=== PATIENT | male | born 1970 | race Caucasian/White ===

== ENCOUNTER 2021-12-10 21:13 | Emergency (ER) | payer BC ==
[~2021-12-10] VITALS: Ht 193 cm; Wt 154.5 kg
[2021-12-10 22:03] VITALS: BP 97/61; PULSE 119; TEMP 97.6
[2021-12-10] MEDS ORDERED: CEPHALEXIN500 M1 PO (22:18)
[2021-12-10] MEDS ORDERED: BACTRIM DS 8001 TAB PO (22:18)
== END 2021-12-10 22:10 | disposition home or self-care (01) ==
LOC: COL.ER 21:13
DX: L03.116 Cellulitis of left lower limb (principal); R60.0 Localized edema; I10 Essential (primary) hypertension; E11.9 Type 2 diabetes mellitus without complications
CPT/HCPCS: J1650

== ENCOUNTER → 2021-12-11 | Outpatient (CLI) | payer BC ==
[~2021-12-11] MED LIST: ASPIRIN 81M81 MG/TA2 PO; BACTRIM DS 8001 TAB PO; CEPHALEXIN500 M1 PO; DINO-LIFE1 CTB PO; GLYNASE PRES-T1.5 MG PO; LOPID 600M600 MG/TAB PO; PRINZIDE 12.5 M1 TAB PO; ZOCOR 10MG10 MG PO
== END ==
LOC: COL.VAS 08:37
DX: M79.89 Other specified soft tissue disorders (principal)

== ENCOUNTER 2021-12-15 21:51 | Inpatient (IN) | payer BC ==
[~2021-12-15] VITALS: Ht 193 cm; Wt 156.1 kg
[~2021-12-15 21:51] MED LIST changes: -ASPIRIN 81M81 MG/TA2 PO; -DINO-LIFE1 CTB PO; -GLYNASE PRES-T1.5 MG PO; -LOPID 600M600 MG/TAB PO; -PRINZIDE 12.5 M1 TAB PO; -ZOCOR 10MG10 MG PO
[2021-12-15 22:18] LABS: COLLECTION METHOD CLEAN CATCH
[2021-12-15 22:22] LABS: HEMOGLOBIN 10.3 g/dl (13.5-18.0); MEAN CELL VOLUME 76 fl (80.0-100.0); MEAN CORPUSCULAR HEMOGLOBIN 24 pg (27-31); MEAN CORPUSCULAR HGB CONC 32 g/dl (33.0-37.0); MEAN PLATELET VOLUME 10.6 fl (7.4-10.4); PLATELET COUNT 200 K/mm3 (130-400); RED BLOOD COUNT 4.32 M/mm3 (4.20-5.60); REDCELL DISTRIBUTION WIDTH-CV 18.9 % (11.5-14.5)
[2021-12-15 22:25] LABS: HEMATOCRIT 32.6 % (42.0-52.0)
[2021-12-15 22:32] LABS: MUCOUS Present (NOT PRESENT); PH 5 (5-8); SQUAMOUS EPITHELIAL None Seen /hpf (0-10); URINE APPEARANCE Clear (CLEAR/HAZY); URINE BACTERIA None Seen /hpf (NONE SEEN); URINE BILIRUBIN Negative (NEGATIVE); URINE BLOOD Negative (NEGATIVE); URINE COLOR Yellow (YELLOW); URINE GLUCOSE Negative (NEGATIVE); URINE KETONE Negative (NEGATIVE); URINE LEUKOCYTE ESTERASE Negative (NEGATIVE); URINE NITRATE Negative (NEGATIVE); URINE PROTEIN(semi-quant) Negative (NEGATIVE); URINE RBC 0-2 /hpf (0-2)
[2021-12-15 22:39] LABS: ALANINE AMINOTRANSFERASE 81 U/L (0-55); ALBUMIN 1.6 gm/dL (3.5-5.0); ALKALINE PHOSPHATASE 574 U/L (40-150); ANION GAP 11 mmol/L (7-16); AST,SGOT 105 U/L (5-34); BILIRUBIN,TOTAL 1.2 mg/dL (0.2-1.2); BLOOD UREA NITROGEN 62 mg/dL (8-26); C-REACTIVE PROTEIN 7.94 mg/dL (0.00-0.50); CALCIUM 8.4 mg/dL (8.4-10.2); CARBON DIOXIDE 21 mmol/L (22-29); CHLORIDE 99 mmol/L (98-107); CREATININE, serum 2.86 mg/dL (0.72-1.25); GLUCOSE 111 mg/dL (70-99); SODIUM 131 mmol/L (136-145); TOTAL PROTEIN 6.5 gm/dL (6.2-8.1)
[2021-12-15] MEDS ORDERED: PRINZIDE 12.5 M1 TAB PO (22:44)
[2021-12-15] MEDS ORDERED: GLYNASE PRES-T1.5 MG PO (22:45)
[2021-12-15] MEDS ORDERED: LOPID 600M600 MG/TAB PO (22:46)
[2021-12-15] MEDS ORDERED: ZOCOR 10MG10 MG PO (22:46)
[2021-12-15 22:47] LABS: TROPONIN-I < 0.010 ng/mL (0.00-0.033)
[2021-12-15] MEDS ORDERED: ASPIRIN 81M81 MG/TA2 PO (22:49)
[2021-12-15] MEDS ORDERED: DINO-LIFE1 CTB PO (22:49)
[2021-12-15 23:17] LABS: BAND 7 % (0-10); LYMPHOCYTE 3 % (20.0-51.0); NEUTROPHILS 83 % (42.0-75.2)
[2021-12-15 23:18] LABS: ANISOCYTOSIS 2+; HYPOCHROMIA 2+; MICROCYTOSIS 1+; PLATELET ESTIMATE NORMAL (NORMAL); TARGET CELLS 1+
[2021-12-16 01:06] VITALS: BP 107/55; PULSE 121; TEMP 98.1
--- NOTE | 2021-12-16 01:37 | NUR ---
ADMIT TO UNIT FROM ER PER CART. ASSESSMENT AND HX OBTAINED. MED REC COMPLETE. PT STATES SWELLING IN LOWER LEGS STARTED LAST THUR AND HAD PAIN BEHIND KNEE. WENT TO SEE PCP, US - FOR DVT, DIAGNOSIS W CELLULITIS AND PUT ON ANTIBOTICS. OF WHICH NEVER GOT BETTER BUT ONLY WORSE. PT HAS +4 PITTING EDEMA UP TO HIPS, RED SWOLLEN AND TIGHT SHINY SKIN. LEFT LOWER TOP OF FOOT HAS BLACK BLISTER DRAINING SOME W FOUL SMELL. DOPPLER FOR PULSES. RATING PAIN 8/10. MORPHINE GIVEN IV. IV ANTIBOTICS INFUSING. POC DISCUSSED. ORIENTATED TO ROOM. CALL LIGHT WI REACH.
[2021-12-16 05:21] VITALS: BP 96/54; PULSE 113; TEMP 97.5
--- NOTE | 2021-12-16 06:11 | NUR ---
51 yo male admitted for further care and management of a possible left lower extremity skin/soft tissue infection that has failed outpatient management. ht 76 inches wt 156.1 kg (adj wt 114.5 kg) SCr 2.86 with estimated CrCl ~40 ml/min half life 30 hours Plan: Patient may not follow population based kinetics secondary to body habitus (BMI ~41.9 kg/m2). Initially given a loading dose of vancomycin 1750 mg in the ED, will give a supplemental loading dose of vancomycin 1250 mgx1 for a total loading dose of 3000 mg (19.2 mg/kg); followed by a maintenance regimen of vancomycin 1250 mg q24h to target a goal trough of 10-15 mcg/ml. Will follow patient's renal function, micro data, and vancomycin levels as inidicated to assess for any necessary changes to regimen. Thank you for this dosing consult.
[2021-12-16 06:19] LABS: MEAN CELL VOLUME 77 fl (80.0-100.0); MEAN CORPUSCULAR HGB CONC 31 g/dl (33.0-37.0); MEAN PLATELET VOLUME 10.2 fl (7.4-10.4); PLATELET COUNT 168 K/mm3 (130-400); RED BLOOD COUNT 4.11 M/mm3 (4.20-5.60); REDCELL DISTRIBUTION WIDTH-CV 18.9 % (11.5-14.5)
[2021-12-16 06:25] LABS: CREATININE, serum 2.59 mg/dL (0.72-1.25); POTASSIUM 5.2 mmol/L (3.5-4.5)
[2021-12-16 06:28] LABS: HEMATOCRIT 31.8 % (42.0-52.0); HEMOGLOBIN 9.7 g/dl (13.5-18.0); MEAN CORPUSCULAR HEMOGLOBIN 24 pg (27-31)
[2021-12-16 07:32] LABS: BAND 6 % (0-10); EOSINOPHIL 1 % (0-4); LYMPHOCYTE 4 % (20.0-51.0); METAMYELOCYTE 1 % (0-0); NEUTROPHILS 75 % (42.0-75.2)
[2021-12-16 07:35] LABS: HYPOCHROMIA 3+
[2021-12-16 08:00] VITALS: BP 99/48; PULSE 119; TEMP 97.8
[2021-12-16 08:20] LABS: PATHOLOGY DIFF REVIEW OK
--- NOTE | 2021-12-16 08:59 | NUR ---
Pt assessment complete. Pt is laying in bed upon entry, he is A/O x4. His breathing is even and unlabored on RA. Pt denies any SOB. No N/V. Pain controlled at this time, but increasing greatly with any touch. LLE weeping and ulcerated, elevated on pillows. Angelique CALLE. No needs at this time. Call light within reach.
--- NOTE | 2021-12-16 10:18 | NUR ---
SW met with the patient to discuss discharge plan. The patient lives in [place] with his , Blanche (ph#[phone]). He reports that he is normally independent with ADLs, but has been in extreme pain and not able to do much since he hurt his leg. The patient has left leg cellulitis. He states that he has been using his lovukp-ff-yhm's walker, but it is too short for him. The patient's PCP is Dr. Norm Flood and he receives his medications from [facility] in [place]. The patient does not have a DPOA-HC, but he was interested in obtaining a form. MARTHA provided. The patient reports that he would just like to stay here as long as possible, until he is better, so his will not have much to do. MARTHA informed him that PT/OT will be working with him and they may recommend home health or post-acute rehab. The patient verbalized understanding. He states that he would like to return home, but would like to see how the next day or two goes. SW to continue to follow. *Discharge plan: Undetermined at this time*
--- NOTE | 2021-12-16 11:37 | NUR ---
First visit from the drying tumbler operator. No needs right now.
[2021-12-16 12:43] VITALS: BP 113/65; PULSE 116; TEMP 98.3
[2021-12-16 16:00] VITALS: BP 101/50; PULSE 117; TEMP 98.2
--- NOTE | 2021-12-16 18:37 | NUR ---
Pt rested in bed through the day, pain controlled with PRN pain medications. Worsened with any ambulation/touch. Continues to weep from wound. IVF infusing. Angelique CALLE.
[2021-12-16 20:45] VITALS: BP 109/54; PULSE 114; TEMP 98.3
[2021-12-17 00:42] VITALS: BP 117/57; PULSE 112; TEMP 98.2
--- NOTE | 2021-12-17 01:16 | NUR ---
PT IS AWAKE ET STATES THAT AFTER THE ALARM ON THE IV PUMP STARTED GOING OFF, IT WOKE HIM UP ET NOW HIS LEFT RIBS ARE HURTING. PT POINTS TO HIS LEFT FLANK, IS GRIMACING, RATES PAIN 4/10 BUT STATES THAT IT IS SEVERE COMBINED WITH FOOT PAIN, IS EXACERBATED BY DEEP BREATHING. PT REQUESTS PAIN MEDICATION, STATES THAT HE MUST HAVE STRAINED A MUSCLE MOVING AROUND IN BED. HR IS 114, OXYGEN SATS ARE 95% ON RA. PT HAD EARLIER WANTED HIS BLOOD SUGAR CHECKED @ 0000 BECAUSE HE THOUGHT THAT IT MAY BE GETTING LOW. BS WAS 71, PT WAS OFFERED ET ATE SNACK. PT DENIES OTHER NEEDS @ THIS TIME. VANCOCIN INFUSING THROUGH PERIPHERAL IV. BROWN CATHETER DRAINING DEPENDENTLY, URINE IS KIMI IN COLOR. CALL LIGHT WITHIN REACH.
--- NOTE | 2021-12-17 04:04 | NUR ---
PT SLEEPING, OCCASIONALLY SNORES. IVF INFUSING. BROWN CATHETER DRAINING. LEFT FOOT IS ELEVATED WITH PILLOWS ET IS WEEPING SEROUS DRAINAGE. CALL LIGHT WITHIN REACH.
--- NOTE | 2021-12-17 05:53 | NUR ---
PT IS IN BED WITH HOB ELEVATED, EATING IRIS CRACKERS WITH PEANUT BUTTER ET APPLE JUICE. [facility] REPORTED THAT PT'S BLOOD SUGAR WAS LOW @ 69 THEN SNACK WAS GIVEN. PT DENIES OTHER NEEDS @ THIS TIME. RESPIRATIONS UNLABORED. CALL LIGHT WITHIN REACH.
[2021-12-17 06:02] VITALS: BP 105/59; PULSE 112; TEMP 97.8
[2021-12-17 06:04] LABS: CREATININE, serum 2.18 mg/dL (0.72-1.25); MAGNESIUM 1.8 mg/dL (1.6-2.6)
--- NOTE | 2021-12-17 06:09 | NUR ---
PT RESTING QUIETLY IN BED, STATES THAT HE IS HAVING A BAD MORNING, HE FEELS FLAT. PT IS UNABLE TO ELABORATE FURTHER. PT SPEAKS QUIETLY, OFTEN MAKES STATEMENTS THAT DO NOT MAKE SENSE. REQUESTS A "FROZEN COKE". PT IS AGREEABLE TO A PEPSI INSTEAD. TPN IS PUT ON STANDBY FOR 10 MINUTES THEN BLOOD IS DRAWN FROM PT'S PICC LINE FOR LABS. TPN IS RESUMED. PT REFUSES TO USE BR @ THIS TIME, STATES THAT HE WILL GO LATER. PT HAS BEEN SEEN TURNING ET REPOSITIONING SELF IN BED FREQUENTLY DURING NIGHT. PT DENIES OTHER NEEDS. RESPIRATIONS UNLABORED. CALL LIGHT WITHIN REACH.
[2021-12-17 07:49] VITALS: BP 117/66; PULSE 119; TEMP 98.2
--- NOTE | 2021-12-17 08:33 | NUR ---
Pt assessment complete. Pt laying in bed upon entry, he is A/O x4. His breathing is even and unlabored on RA. Pt denies SOB. Pain to LLE worse with ambulation. Draining and weeping to the ulceration of L foot, elevated on a pillow. Angelique CALLE. No needs at this time. Call light within reach.
[2021-12-17 11:42] VITALS: BP 135/66; PULSE 118; TEMP 97.6
[2021-12-17 11:59] LABS: CREATININE, serum 2.09 mg/dL (0.72-1.25); FRACTIONAL EXCRETION OF NA+ 0.37 %
[2021-12-17 15:35] VITALS: BP 131/59; PULSE 115; TEMP 98.2
--- NOTE | 2021-12-17 18:01 | NUR ---
Pt up to the cammode a few times today with assistance of one and use of a walker. Pain improved but does spike with ambulation and weight to that L foot. Dressing placed to foot-vaseline gauze, ABD, and gauze wrap. IV moved to RFA d/t increased swelling of LUE. Merino DD. No needs at this itme. Call light within reach.
[2021-12-17 20:22] VITALS: BP 123/57; PULSE 116; TEMP 97.9
--- NOTE | 2021-12-17 21:00 | NUR ---
PT RESTING IN BED. C/O INSOMNIA. SEE NEW ORDER FOR MELATONIN. SEE MAR FOR PAIN MEDS GIVEN FOR LT FOOT PAIN. LT FOOT ELEVATED ON PILLOW. SHIFT ASSESSMENT COMPLETED.
[2021-12-18] VITALS (7 sets, daily range): BP systolic 115–142; BP diastolic 60–71; PULSE 100–118; TEMP 97.7–98.5
--- NOTE | 2021-12-18 01:07 | NUR ---
DRSG CHANGED TO LT FOOT WITH VASELINE GAUZE, 4X4'S ABD'S GAUZE WRAP AND COBAN. SEEPING YELLOW SEROUS FLUID. PT FAHEEM WELL. GAVE PROTONIX FOR HEARTBURN. SEE JAN.
[2021-12-18 06:03] LABS: HEMOGLOBIN 10.2 g/dl (13.5-18.0); MEAN CELL VOLUME 75 fl (80.0-100.0); MEAN CORPUSCULAR HEMOGLOBIN 24 pg (27-31); MEAN CORPUSCULAR HGB CONC 32 g/dl (33.0-37.0); MEAN PLATELET VOLUME 9.8 fl (7.4-10.4); RED BLOOD COUNT 4.31 M/mm3 (4.20-5.60); REDCELL DISTRIBUTION WIDTH-CV 18.9 % (11.5-14.5)
--- NOTE | 2021-12-18 06:17 | NUR ---
SAMPSON Turner. PROVIDED SPRITE D/T SOME HEARTBURN.
[2021-12-18 06:25] LABS: CALCIUM 8.2 mg/dL (8.4-10.2); CREATININE, serum 1.77 mg/dL (0.72-1.25); POTASSIUM 4.8 mmol/L (3.5-4.5)
[2021-12-18 06:41] LABS: HEMATOCRIT 32.3 % (42.0-52.0)
[2021-12-18 06:46] LABS: PLATELET COUNT 279 K/mm3 (130-400)
[2021-12-18 07:44] LABS: BAND 14 % (0-10); BASOPHIL 1 % (0-2); EOSINOPHIL 2 % (0-4); LYMPHOCYTE 8 % (20.0-51.0); NEUTROPHILS 72 % (42.0-75.2)
[2021-12-18 07:45] LABS: PLATELET ESTIMATE NORMAL (NORMAL)
[2021-12-18 07:46] LABS: ANISOCYTOSIS 2+; HYPOCHROMIA 2+; MICROCYTOSIS 1+
--- NOTE | 2021-12-18 10:28 | NUR ---
Report received from nightshift nurse. Patient is awake and watching television in his bed. Full body assessment completed and vital signs are WNL. Morning medications were administered without difficulty. Informed the patient that he will be getting an MRI today. Telemetry was initiated. Patient denies any pain or complaints at this time. Call light within reach.
--- NOTE | 2021-12-18 13:15 | NUR ---
PATIENT OFF FLOOR FOR VQ SCAN
--- NOTE | 2021-12-18 15:32 | NUR ---
PATIENT GOING DOWN FOR CT SCAN OF LEFT FOOT/ANKLE
--- NOTE | 2021-12-18 15:35 | NUR ---
Patient left the floor via wheelchair to receive his MRI. Patient had difficulty ambulating to the wheelchair and expressed that his foot was hurting.
--- NOTE | 2021-12-18 16:07 | NUR ---
AT BEDSIDE, PATIENT GONE TO MRI. PROVIDER TALKED WITH SON.
--- NOTE | 2021-12-18 17:14 | NUR ---
This nurse performed a dressing change to the left foot. The wound is on the dorsal of the foot and had saturated the dressing with serous fluid. Vaseline gauze, 4 x 4's, and abdominal incision dressing, soft roll, and hannah bandage were used. Patient tolerated dressing change well. Foot is currently elevated by pillows.
--- NOTE | 2021-12-18 17:15 | NUR ---
PATIENT VERY HUNGRY AFTER GETTING BACK FROM SCAN. BS WAS ONLY 76, SUPPER TRAY AT BEDSIDE AND PATIENT EATTING NOW.
--- NOTE | 2021-12-18 19:21 | NUR ---
PT RESTING IN BED. NO PAIN AT THIS TIME. NO HEARTBURN. LT FOOT UP ON PILLOW. CALL LIGHT IN REACH. BED ALARM SET.
[2021-12-19] VITALS (7 sets, daily range): BP systolic 119–133; BP diastolic 60–70; PULSE 116–122; TEMP 97.2–98.1
[2021-12-19 04:45] LABS: HEMOGLOBIN 10.6 g/dl (13.5-18.0); MEAN CELL VOLUME 77 fl (80.0-100.0); MEAN CORPUSCULAR HEMOGLOBIN 24 pg (27-31); MEAN CORPUSCULAR HGB CONC 31 g/dl (33.0-37.0); MEAN PLATELET VOLUME 9.3 fl (7.4-10.4); PLATELET COUNT 279 K/mm3 (130-400); RED BLOOD COUNT 4.41 M/mm3 (4.20-5.60); REDCELL DISTRIBUTION WIDTH-CV 19.6 % (11.5-14.5)
[2021-12-19 04:54] LABS: HEMATOCRIT 34.1 % (42.0-52.0)
--- NOTE | 2021-12-19 04:58 | NUR ---
NOTIFED AYAH GALINDO OF WBC 23.0.
[2021-12-19 05:21] LABS: BAND 17 % (0-10); EOSINOPHIL 1 % (0-4); LYMPHOCYTE 3 % (20.0-51.0); METAMYELOCYTE 5 % (0-0); NEUTROPHILS 70 % (42.0-75.2); NUCLEATED RED BLOOD CELL 1 (0-6)
[2021-12-19 05:22] LABS: ANISOCYTOSIS 1+; CALCIUM 8.4 mg/dL (8.4-10.2); CREATININE, serum 1.56 mg/dL (0.72-1.25); HYPOCHROMIA 1+; POTASSIUM 4.5 mmol/L (3.5-4.5)
--- NOTE | 2021-12-19 05:30 | NUR ---
DRSG TO LT FOOT DAMP. CHANGED AT THIS TIME. NOTED DARK SLOUGHING TISSUE TO DORSAL SURFACE WITH YELLOW SEROUS DRAINAGE NOTED. LT FOOT VERY EDMEATOUS. ELEVATED ON PILLOW. PT FAHEEM WELL.
--- NOTE | 2021-12-19 19:01 | NUR ---
INFECTIOUS DISEASE CONSULTED THIS SHIFT D/T INCREASING WBC'S. PT IS AFEBRILE AND TACHY BUT PER PATIENT THAT IS HIS BASELINE. DRESSING TO LLE REMAINS C,D,I. MRI OF FOOT DID NOT INDICATE OSTEOMYLITIS. BROWN IN PLACE D/T SCROTAL SWELLING. PT CONTINUES TO HAVE GENERALIZED EDEMA WITH 2+ PITTING EDEMA TO BLE, LOWER ABDOMEN AND LEFT ARM. KIDNEY FUNCTION IMPROVING. PT TOLERATING DIET AND BLOOD SUGARS ARE STABLE.
--- NOTE | 2021-12-19 19:56 | NUR ---
TELE CALLED. HR 130. PT ASYMPTOMATIC. MOVING AROUND IN BED.
--- NOTE | 2021-12-19 20:56 | NUR ---
PT RESTING AT THIS TIME. NO DISTRESS.
--- NOTE | 2021-12-20 | NUR ---
DRSG CHANGE TO LT FOOT DONE WITH VASELINE GAUZE, 4x4'S, ABD, GAUZE AND COBAN. PT FAHEEM WELL. STILL HAVING SEROUS YELLOW DRAINAGE NOTED. WOUND COVERS DORSAL LT FOOT WITH SLOUGHING DARK TISSUE. PT C/O OF ENLARGED EDEMATOUS SCROTUM. ICE PACK APPLIED. EDEMA PROMINENT IN ABD ALSO.
[2021-12-20 03:00] VITALS: BP 138/65; PULSE 120; TEMP 97.5
--- NOTE | 2021-12-20 03:16 | NUR ---
PT FEELS HYPOGLYCEMIC. ACCUCHECK 65. GAVE SANDWICH AND [place].
--- NOTE | 2021-12-20 03:30 | NUR ---
ACCUCHECK 72.
--- NOTE | 2021-12-20 06:18 | NUR ---
PT SLEEPING. NO DISTRESS.
[2021-12-20 06:37] LABS: HEMOGLOBIN 10.9 g/dl (13.5-18.0); MEAN CELL VOLUME 77 fl (80.0-100.0); MEAN CORPUSCULAR HEMOGLOBIN 24 pg (27-31); MEAN CORPUSCULAR HGB CONC 31 g/dl (33.0-37.0); MEAN PLATELET VOLUME 9.1 fl (7.4-10.4); PLATELET COUNT 275 K/mm3 (130-400); RED BLOOD COUNT 4.54 M/mm3 (4.20-5.60); REDCELL DISTRIBUTION WIDTH-CV 19.9 % (11.5-14.5)
[2021-12-20 06:41] LABS: HEMATOCRIT 35.1 % (42.0-52.0)
[2021-12-20 06:55] LABS: CALCIUM 8.9 mg/dL (8.4-10.2); CREATININE, serum 1.39 mg/dL (0.72-1.25); POTASSIUM 4.5 mmol/L (3.5-4.5)
[2021-12-20 07:42] LABS: BAND 11 % (0-10); EOSINOPHIL 1 % (0-4); LYMPHOCYTE 8 % (20.0-51.0); METAMYELOCYTE 2 % (0-0); MYELOCYTE 3 % (0-0); NEUTROPHILS 73 % (42.0-75.2)
[2021-12-20 07:43] LABS: PLATELET ESTIMATE NORMAL (NORMAL)
[2021-12-20 07:44] LABS: HYPOCHROMIA 2+; MICROCYTOSIS 1+
[2021-12-20 08:00] VITALS: BP 137/70; PULSE 117; TEMP 97.6
--- NOTE | 2021-12-20 09:17 | NUR ---
PT LAYING IN BED. LEFT FOOT ELEVATED ON PILLOW. BROWN DRAINING YELLOW URINE. LARGE AMOUNT OF SCROTUM SWELLING NOTED. ELEVATED WITH TOWEL FOR COMFORT. PT STATES THAT HE IS NOT HAVING ANY PAIN AT THIS TIME. PT DOES NOT VOICE ANY OTHER NEEDS AT THIS TIME. CALL LIGHT IS WITHIN REACH.
--- NOTE | 2021-12-20 10:16 | NUR ---
SPOKE TO ABOUT PTS SWELLING. STATES THAT HE IS GOING TO START HIM ON LASIX. "I AM GOING TO PUT THAT IN NOW." STATES THAT HIS URINE OUTPUT WILL NEED TO BE MONITORED. ALSO STATED THAT HE IS GOING TO CHANGE HIM TO A REGULAR DIET FOR NOW BECAUSE OF HIS HYPOGLYCEMIA EPISODES THAT HE HAS HAD. WILL CONTINUE TO MONITOR.
[2021-12-20 11:36] VITALS: BP 130/60; PULSE 123; TEMP 98.1
--- NOTE | 2021-12-20 12:24 | NUR ---
PA AT BEDSIDE TO LOOK AT PT WOUND. DRESSING WAS REMOVED. PT ORDERED DRESSING TO BE PUT BACK ON. TELFA, GAUZE AND AN LIZBETH WRAP. DRESSING WAS APPLIED PER VERBAL ORDER. FOOT WAS THEN ELEVATED ON MULTIPLE PILLOWS. CALL LIGHT IS WITHIN REACH. PT STATES NO OTHER NEEDS AT THIS TIME.
[2021-12-20 16:08] VITALS: BP 1032/62; PULSE 122; TEMP 97.5
--- NOTE | 2021-12-20 18:26 | NUR ---
PT LAYING QUIETLY IN BED. BROWN WAS EMPTIED WITH 1100ML OF YELLOW URINE. PT STATES THAT HE IS NOT HAVING ANY PAIN AT THIS TIME. STATES THAT "I FEEL LIKE THE SWELLING IS GOING DOWN, I DO NOT FEEL MUCH DISCOMFORT IN MY SCROTUM." PT STATES THAT HE DOES NOT NEED ANYTHING ELSE AT THIS TIME. CALL LIGHT IS WITHIN REACH.
[2021-12-20 20:34] VITALS: BP 123/63; PULSE 117; TEMP 97.5
--- NOTE | 2021-12-20 20:48 | NUR ---
PT RESTING IN BED. PT FELLS SWELLING STARTING TO IMPROVE WITH LASIX. LT FOOT DRSG CDI AND ELEVATED ON PILLOW. SHIFT ASSESSMENT COMPLETED.
[2021-12-20 23:31] VITALS: BP 121/72; PULSE 118; TEMP 97.6
[2021-12-21 03:53] VITALS: BP 120/62; PULSE 120; TEMP 97.5
--- NOTE | 2021-12-21 06:08 | NUR ---
PT HAD A FAIRLY RESTFUL NIGHT. 1500CC FLUID RESTRICTION CONTINUES. TOTAL UO THIS SHIFT WAS 2100CC.
[2021-12-21 06:56] LABS: HEMOGLOBIN 11.7 g/dl (13.5-18.0); MEAN CELL VOLUME 78 fl (80.0-100.0); MEAN CORPUSCULAR HEMOGLOBIN 25 pg (27-31); MEAN CORPUSCULAR HGB CONC 32 g/dl (33.0-37.0); MEAN PLATELET VOLUME 8.9 fl (7.4-10.4); PLATELET COUNT 276 K/mm3 (130-400); RED BLOOD COUNT 4.77 M/mm3 (4.20-5.60); REDCELL DISTRIBUTION WIDTH-CV 20.2 % (11.5-14.5)
[2021-12-21 07:07] LABS: CALCIUM 9.3 mg/dL (8.4-10.2); CREATININE, serum 1.46 mg/dL (0.72-1.25); POTASSIUM 4.2 mmol/L (3.5-4.5)
--- NOTE | 2021-12-21 07:30 | NUR ---
CALLED HOSPITALIST TO GIVEN PATIENT STATUS UPDATE AND CRITIAL WBC RESULT OF 44.1. PATIENT DENIES FEVER OR DIARRHEA. NURSING EXPRESSED CONCERN ABOUT ABDOMINAL AND LOWER EXTREMITY EDEMA WORSENING AND POSSIBLY PREVENTING APPROPRIATE ABSORPTION OF MEDS SUCH ABX & SUBQ HEPARIN. HOSPITALIST TEAM TO EVALUATE AND MAKE RECS WHEN THEY ROUND.
--- NOTE | 2021-12-21 08:00 | NUR ---
PATIENT IS A&O. NOTED ELEVATED HR IN THE 120'S ON TELE. PATIENT IS ASYMPTOMATIC AND HAS BEEN TACHY SINCE ADMISSION. ALL OTHER VSS. CRITICAL WBC OF 44.1 CALLED TO HOSPITALIST THIS AM, NO NEW ORDERS AT THIS TIME. I.D. CONSULTED. PATIENT ABD, SCROTOL AND BLE EDEMA IS EXTENSIVE AND PITTING +3. LEFT FOOT WITH ULCER AND DRESSING INPLACE, CD&I AT THIS TIME. BLE ARE DISCOLORED (PURPLE) FROM POOR CIRCULATION AND NOTE SCALING/FLAKING. PATIENT GETTING IV LASIX. 1,500CC FR. ADA DIET. AM BS WAS 79, NO SSI REQUIRED. BROWN TO DD WITH MOD AMOUNTS OF YELLOW URINE NOTED. RIGHT FORARM IV TO INT. NOTED FC IN LEFT LUNG LI, DEMINISHED RIGHT LUNG LI. PATIENT IS 1-2 ASSIST, WEAK. PT CONSULTED. HEAD TO TOE ASSESSMENT COMPLETE. AM MEDS GIVEN. NO OTHER NEEDS AT THIS TIME. CALL LIGHT IN REACH.
[2021-12-21 08:01] VITALS: BP 143/63; PULSE 122; TEMP 97.5
[2021-12-21 08:59] LABS: BAND 9 % (0-10); LYMPHOCYTE 6 % (20.0-51.0); METAMYELOCYTE 1 % (0-0); NEUTROPHILS 80 % (42.0-75.2); NUCLEATED RED BLOOD CELL 2 (0-6)
--- NOTE | 2021-12-21 10:24 | NUR ---
SW met with the patient to follow up and review discharge plan. The patient states that he is doing well. He reports that he plans on returning home with his upon discharge and he would be interested in getting a new FWW. SW to continue to follow.
[2021-12-21 10:43] LABS: PATHOLOGY DIFF REVIEW OK +
[2021-12-21 10:58] VITALS: BP 135/55; PULSE 121; TEMP 97.5
--- NOTE | 2021-12-21 14:15 | NUR ---
ORTHO AT BEDSIDE, REMOVED LLE DRESSING AND REMOVED SOME SKIN/TISSUE. LLE ULCER TO TOP OF LEFT FOOT IS BLEEDING, NOTED SOME NECROTIC TISSUE. APPLIED NEW DRESSING TO LEFT FOOT AND ELEVATED WITH PILLOW. A NEW ICE PACK APPLIED TO SCROTOL EDEMA PER PATIENT REQUEST.
[2021-12-21 15:59] VITALS: BP 134/62; PULSE 120; TEMP 98.1
--- NOTE | 2021-12-21 18:00 | NUR ---
PATIENT'S AT BEDSIDE. BROUGHT PATIENT A DAIRY MARINELLI CHEESE BURGER, FRIES AND DRINK. PATIENT REMINDED OF 1,500CC FR. IV ABX NOW INFUSING
--- NOTE | 2021-12-21 18:29 | NUR ---
PATIENT TOLERATING TRANSFUSION WELL. VSS. INCREASED TRANSFUSION RATE TO 120CC/HR. WILL MONITOR.
--- NOTE | 2021-12-21 19:11 | NUR ---
RECEIVED CHANGE OF SHIFT REPORT FROM DAY SHIFT NURSE, PATIENT RESTING IN BED DURING REPORT.
[2021-12-21 19:50] VITALS: BP 123/60; PULSE 122; TEMP 97.3
[2021-12-21 23:38] VITALS: BP 124/62; PULSE 112; TEMP 97.6
[2021-12-22 04:10] VITALS: BP 133/67; PULSE 125; TEMP 98.2
[2021-12-22 06:48] LABS: HEMATOCRIT 37.5 % (42.0-52.0); HEMOGLOBIN 12.1 g/dl (13.5-18.0); MEAN CELL VOLUME 77 fl (80.0-100.0); MEAN CORPUSCULAR HEMOGLOBIN 25 pg (27-31); MEAN CORPUSCULAR HGB CONC 32 g/dl (33.0-37.0); MEAN PLATELET VOLUME 9.2 fl (7.4-10.4); PLATELET COUNT 229 K/mm3 (130-400); RED BLOOD COUNT 4.89 M/mm3 (4.20-5.60); REDCELL DISTRIBUTION WIDTH-CV 20.6 % (11.5-14.5)
[2021-12-22 07:07] LABS: CALCIUM 9.6 mg/dL (8.4-10.2); CREATININE, serum 1.3 mg/dL (0.72-1.25); MAGNESIUM 1.6 mg/dL (1.6-2.6); POTASSIUM 3.6 mmol/L (3.5-4.5)
--- NOTE | 2021-12-22 07:33 | NUR ---
CHANGE OF SHIFT REPORT GIVEN TO DAY SHIFT RNMARSHA.
[2021-12-22 07:48] VITALS: BP 126/68; PULSE 59; TEMP 97.7
[2021-12-22 08:59] LABS: BAND 13 % (0-10); LYMPHOCYTE 5 % (20.0-51.0); METAMYELOCYTE 3 % (0-0); MYELOCYTE 1 % (0-0); NEUTROPHILS 77 % (42.0-75.2)
[2021-12-22 09:00] LABS: PLATELET ESTIMATE NORMAL (NORMAL)
--- NOTE | 2021-12-22 09:53 | NUR ---
Report recevied from nightshift nurse. Patient laying in bed watching television. Patient initally here for a left dorasal foot ulcer. Full body assessment and medication administration completed without difficulty. Vital signs are WNL and patient is A&Ox4. Patient complains of scrotum pain due to edema. Ice pack and elevation provided to malinarum. Patients heparin will no longer be given in the abdomen but in the subcutaneous tissue of the arms due to severe abdominal edema. Patient rates his pain 3/10 and has no other complaints at this time. Call light within reach.
[2021-12-22 12:48] VITALS: BP 123/58; PULSE 124; TEMP 98
[2021-12-22 16:00] VITALS: BP 116/64; PULSE 127; TEMP 97.7
--- NOTE | 2021-12-22 19:22 | NUR ---
RECEIVED CHANGE OF SHIFT REPORT FROM DAY SHIFT RN. REPORTS HAS URGE TO VOID, BROWN CATHETER TO DD, DRAINING CLEAR DARK YELLOW URINE.
[2021-12-22 19:56] VITALS: BP 125/63; PULSE 127; TEMP 98
[2021-12-22 23:36] VITALS: BP 125/63; PULSE 120; TEMP 98.1
--- NOTE | 2021-12-23 03:00 | NUR ---
Patient reporting recurrence of discomfort with urge to void. Merino cath balloon, deflated and reinflated with no change of amount pulled into syringe and reinflated into catheter balloon. Repositioned edematous scrotum for comfort that patient reported had helped lessen c/o of discomfort with urgency. Patient requested and given Tylenol for pain.
[2021-12-23 03:29] VITALS: BP 114/65; PULSE 126; TEMP 98.5
--- NOTE | 2021-12-23 04:53 | NUR ---
PER TELE, HEART RATE INCREASED UP TO 130'S THAT WOULD TREND DOWN TO 120'S REPORTED X2. INFORMED HOSP PROVIDER OF TELE REPORT. ORDER TO GET 12 LEAD EKG DONE, TO INFORM RT OF ORDER.
--- NOTE | 2021-12-23 05:49 | NUR ---
PATIENT REPORTS PAIN WITH URGENCY RETURNED WITH OBSERVED SOME URINE LEAKING AROUND BROWN CATHETER. REPOSITIONED SCROTUM WITH PAIN RESOLVED, OBSERVING THAT TENSION ON CATHETER LESSENED WITH REPOSITIONING BUT PATIENT NOW REQUESTING STRONGER MED FOR BLADDER DISCOMFORT. CONTACTED HOSP PROVIDER, NFORMED THAT EKG WAS DONE AND OF PATIENT'S REQUEST FOR MORE PAIN MEDS. PROVIDER TO ENTER ORDERS.
[2021-12-23 06:49] LABS: HEMATOCRIT 37.9 % (42.0-52.0); HEMOGLOBIN 12.2 g/dl (13.5-18.0); MEAN CELL VOLUME 77 fl (80.0-100.0); MEAN CORPUSCULAR HEMOGLOBIN 25 pg (27-31); MEAN CORPUSCULAR HGB CONC 32 g/dl (33.0-37.0); MEAN PLATELET VOLUME 8.8 fl (7.4-10.4); PLATELET COUNT 174 K/mm3 (130-400); RED BLOOD COUNT 4.94 M/mm3 (4.20-5.60); REDCELL DISTRIBUTION WIDTH-CV 21.1 % (11.5-14.5)
[2021-12-23 07:15] LABS: CALCIUM 9.8 mg/dL (8.4-10.2); CREATININE, serum 1.55 mg/dL (0.72-1.25); MAGNESIUM 1.9 mg/dL (1.6-2.6); POTASSIUM 3.6 mmol/L (3.5-4.5)
--- NOTE | 2021-12-23 07:41 | NUR ---
CHANGE OF SHIFT REPORT GIVEN TO DAY SHIFT JELENA ROSAS. TELE IN PLACE. BROWN DRAINAING. IV ABX INFUSING PER PICC TO RUE. CALL LIGHT WITHIN REACH.
[2021-12-23 08:00] VITALS: BP 120/71; PULSE 125; TEMP 98.8
[2021-12-23 09:17] LABS: EOSINOPHIL 1 % (0-4); LYMPHOCYTE 2 % (20.0-51.0); METAMYELOCYTE 1 % (0-0); MYELOCYTE 2 % (0-0); NUCLEATED RED BLOOD CELL 5 (0-6); PLATELET ESTIMATE NORMAL (NORMAL)
[2021-12-23 09:18] LABS: OVALOCYTES 1+; POLYCHROMASIA 1+
[2021-12-23 09:21] LABS: BAND 13 % (0-10); NEUTROPHILS 77 % (42.0-75.2)
[2021-12-23 11:40] VITALS: BP 119/63; PULSE 123; TEMP 97.8
--- NOTE | 2021-12-23 15:01 | NUR ---
ICU called to say patient has been in the 120s for the last couple of hours. This nurse reported it to the hospitalist. will continue to monitor throughout shift.
[2021-12-23 15:43] VITALS: BP 120/64; PULSE 125; TEMP 98.2
--- NOTE | 2021-12-23 19:34 | NUR ---
RECEIVED CHANGE OF SHIFT REPORT FROM DAY SHIFT RN. PATIENT IN BED DURING REPORT, AT BEDSIDE FOR MOST OF DAY SHIFT PER STAFF REPORT, HAD BROUGHT PATIENT'S CPAP MACHINE FOR PATIENT USE WHILE IN HOSPITAL. BROWN CATH TO DD IN PLACE STILL. NO COMPLAINTS DURING REPORT. CALL LIGHT WITHIN REACH.
--- NOTE | 2021-12-23 19:50 | NUR ---
PATIENT REQUEST MED FOR ONGOING INTERMITTENT BLADDER SPASMS/DISCOMFORT. OBSERVED NO URINARY LEAKING FROM AROUND BROWN CATHETER SITE, BROWN CATH DRAINING WITH NO PROBLEMS.
[2021-12-23 20:57] VITALS: BP 133/64; PULSE 123; TEMP 97.5
[2021-12-23 23:14] VITALS: BP 124/70; PULSE 117; TEMP 98.2
--- NOTE | 2021-12-24 01:46 | NUR ---
DRESSING TO LEFT FOOT CHANGED DUE LARGE AMOUNT DRAINAGE OBSERVED TO DRSG. LEFT DORSAL WOUND WITH EDGES RED, OOZING YELLOWISH DRAINAGE, SLOUGH. REPLACED SOILED VASELINE/TELFA/GAUZE/ABD/SOFT ROLL DRSGS WITH SAME VASELINE/TELFA/GAUZE/ABD/SOFT ROLL DRSGA BEFORE. PATIENT REPORTED NO DISCOMFORT WITH DRSG CHANGE. LLE CONTINUES ELEVATED ON PILLOWS. NO OTHER NEEDS REPORTED. RENEWED ICE PACK TO GROSSLY EDEMATOUS SCROTAL/PENIS AREA. BROWN CONTINUES IN PLACE AND DRAINING WITH PATIENT REPORTING BLADDER DISCOMFORT WITH URGE TO VOID.
[2021-12-24 04:18] VITALS: BP 128/59; PULSE 121; TEMP 97.4
[2021-12-24 06:35] LABS: HEMATOCRIT 38.6 % (42.0-52.0); HEMOGLOBIN 12.5 g/dl (13.5-18.0); MEAN CELL VOLUME 75 fl (80.0-100.0); MEAN CORPUSCULAR HEMOGLOBIN 24 pg (27-31); MEAN CORPUSCULAR HGB CONC 32 g/dl (33.0-37.0); MEAN PLATELET VOLUME 9.8 fl (7.4-10.4); PLATELET COUNT 132 K/mm3 (130-400); RED BLOOD COUNT 5.15 M/mm3 (4.20-5.60); REDCELL DISTRIBUTION WIDTH-CV 21.2 % (11.5-14.5)
[2021-12-24 06:51] LABS: CREATININE, serum 1.89 mg/dL (0.72-1.25); POTASSIUM 3.6 mmol/L (3.5-4.5)
--- NOTE | 2021-12-24 07:12 | NUR ---
CHANGE OF SHIFT REPORT GIVEN TO DAY SHIFT RNJELENA. RECEIVED WBC RESULT FROM LAB OF 40.9, DOWN FROM YESTERDAY'S LEVEL OF 49.0
--- NOTE | 2021-12-24 07:18 | NUR ---
Report received from RALPH Parr. Patient is sleeping in bed. Call light and bedside are within reach. Will monitor throughout shift
[2021-12-24 08:04] VITALS: BP 124/63; PULSE 119; TEMP 98
[2021-12-24 08:50] LABS: BAND 4 % (0-10); EOSINOPHIL 1 % (0-4); LYMPHOCYTE 5 % (20.0-51.0); MYELOCYTE 1 % (0-0); NEUTROPHILS 86 % (42.0-75.2); NUCLEATED RED BLOOD CELL 6 (0-6); PLATELET ESTIMATE NORMAL (NORMAL)
[2021-12-24 08:51] LABS: ANISOCYTOSIS 2+; HYPOCHROMIA 1+; MICROCYTOSIS 1+
--- NOTE | 2021-12-24 09:33 | NUR ---
Initial visit; Patient thanked Oracle Security Consultant for looking in on him and offering prayer and God's blessings.
[2021-12-24 12:16] VITALS: BP 118/59; PULSE 117; TEMP 97.7
[2021-12-24 16:41] VITALS: BP 118/55; PULSE 60; TEMP 97.5
--- NOTE | 2021-12-24 19:46 | NUR ---
LT FOOT DRSG SATURATED WITH SEROUS LIGHT YELLOW DRAINAGE. DRSG CHANGED AT THIS TIME. PT UP TO BR. BROWN CATHER STATLOCK PULLING AT URETHRA. UNCLAMPED STAT LOCK. SMALL REDNEES NOTED AT URETHRA. APPROX 1/2 CM OPENING AT TOP OF GLUTEAL CLEFT. WILL APPLY DRSG NEXT TIME UP TO BR. LASIX 2.75CC/HR ORDERED TO RT PICC LINE.
--- NOTE | 2021-12-24 20:07 | NUR ---
DR OSWALD NOTIFIED LASIX DRIP NOW AT 2.75CC/HR. NO NEW ORDERS.
[2021-12-24 20:57] VITALS: BP 124/64; PULSE 58; TEMP 97.2
[2021-12-25 00:10] VITALS: BP 123/62; PULSE 115; TEMP 97.6
[2021-12-25 04:21] VITALS: BP 122/65; PULSE 117; TEMP 97.7
--- NOTE | 2021-12-25 06:06 | NUR ---
PT VERY UNCOMFORTABLE WITH EDEMATOUS SCROTUM. EXTREME EDEMA IN ABD WELL. URINE OUTPUT THIS SHIFT WAS 650CC. LASIX DRIP CONTINUES AT 2.75CC/HR.
--- NOTE | 2021-12-25 06:24 | NUR ---
PT REPORTS DRSG ON COCCYX HURTS- TOOK OFF DRSG FOR NOW. REPOSITIONED WITH PILLOW UNDER LT SIDE AND GAVE TYLENOL.
[2021-12-25 06:30] LABS: HEMOGLOBIN 11.6 g/dl (13.5-18.0); MEAN CELL VOLUME 76 fl (80.0-100.0); MEAN CORPUSCULAR HEMOGLOBIN 24 pg (27-31); MEAN CORPUSCULAR HGB CONC 32 g/dl (33.0-37.0); MEAN PLATELET VOLUME 8.8 fl (7.4-10.4); PLATELET COUNT 92 K/mm3 (130-400); REDCELL DISTRIBUTION WIDTH-CV 21.5 % (11.5-14.5)
[2021-12-25 06:36] LABS: HEMATOCRIT 36.5 % (42.0-52.0)
[2021-12-25 06:50] LABS: CALCIUM 9.8 mg/dL (8.4-10.2); CREATININE, serum 2.18 mg/dL (0.72-1.25); MAGNESIUM 2.1 mg/dL (1.6-2.6); PHOSPHOROUS 3.8 mg/dL (2.3-4.7); POTASSIUM 3.8 mmol/L (3.5-4.5)
[2021-12-25 07:29] VITALS: BP 117/56; PULSE 118
[2021-12-25 08:16] LABS: BAND 8 % (0-10); LYMPHOCYTE 5 % (20.0-51.0); MYELOCYTE 1 % (0-0); NEUTROPHILS 86 % (42.0-75.2)
[2021-12-25 08:17] LABS: ANISOCYTOSIS 1+; PLATELET ESTIMATE NORMAL (NORMAL)
[2021-12-25 08:18] LABS: HYPOCHROMIA 1+; MICROCYTOSIS 1+
--- NOTE | 2021-12-25 10:26 | NUR ---
Follow-up visit; Patient thanked Email Deployment Specialist for looking in on him again today and wished Email Deployment Specialist a good weekend.
[2021-12-25 12:04] VITALS: BP 126/61; PULSE 113; TEMP 98.2
[2021-12-25 15:14] VITALS: BP 108/62; PULSE 103; TEMP 97.4
[2021-12-25 21:10] VITALS: BP 111/62; PULSE 102; TEMP 98
[2021-12-26] VITALS (7 sets, daily range): BP systolic 104–120; BP diastolic 51–69; PULSE 103–113; TEMP 97.4–98.2
[2021-12-26 06:51] LABS: HEMOGLOBIN 11.1 g/dl (13.5-18.0); MEAN CELL VOLUME 75 fl (80.0-100.0); MEAN CORPUSCULAR HEMOGLOBIN 24 pg (27-31); MEAN CORPUSCULAR HGB CONC 32 g/dl (33.0-37.0); MEAN PLATELET VOLUME 8.9 fl (7.4-10.4); PLATELET COUNT 70 K/mm3 (130-400); RED BLOOD COUNT 4.59 M/mm3 (4.20-5.60); REDCELL DISTRIBUTION WIDTH-CV 21.9 % (11.5-14.5)
--- NOTE | 2021-12-26 07:00 | NUR ---
PT SLEEPING IN BED. ZOSYN RUNNING THRU [facility] PIC. NO NEEDS AT THIS TIME. WILL CONTINUE TO MONITOR.
[2021-12-26 07:07] LABS: ALBUMIN 2.1 gm/dL (3.5-5.0); BILIRUBIN,TOTAL 3.1 mg/dL (0.2-1.2); CALCIUM 9.8 mg/dL (8.4-10.2); CREATININE, serum 2.5 mg/dL (0.72-1.25); POTASSIUM 3.9 mmol/L (3.5-4.5)
[2021-12-26 07:19] LABS: INR 1.9 (0.8-3.0); PROTHROMBIN TIME 21.3 SECONDS (9.7-12.8)
[2021-12-26 07:56] LABS: HEMATOCRIT 34.5 % (42.0-52.0)
--- NOTE | 2021-12-26 09:24 | NUR ---
PT INCONTINENT OF STOOL. PT CLEANED, CHANGED AND REPOSITIONED. PT'S BLE ELEVATED AND SCROTUM ELEVATED. PT'S BED TURN ASSIST TURNED ON TO TURN Q15 MINS. WILL CONTINUE TO MONTIOR.
[2021-12-26 11:36] LABS: BAND 2 % (0-10); EOSINOPHIL 3 % (0-4); HYPOCHROMIA 1+; LYMPHOCYTE 5 % (20.0-51.0); MICROCYTOSIS 1+; NEUTROPHILS 88 % (42.0-75.2)
[2021-12-26 11:37] LABS: ANISOCYTOSIS 2+; PLATELET ESTIMATE DECREASED (NORMAL)
[2021-12-27 04:00] VITALS: BP 98/53; PULSE 110; TEMP 98
--- NOTE | 2021-12-27 07:00 | NUR ---
appears to be sleeping, CPAP on, bedside shift report received from RALPH Krishnamurthy
--- NOTE | 2021-12-27 07:37 | NUR ---
fasting BGM 63@ 0635, pt given 240 mls apple juice followed by angeles cracker and PB, pt unable to tolerate cracker/PB d/t dry mouth, apple sauce given. recheck BGM 15 mins later up to 64 at 0650, repeat up to 85. pt has hard a hard time sleeping this shift d/t painful scrotal edema, CPAP used during the noc. 600 cc out of [place] this shift. PICC to [facility] patent/secure.
[2021-12-27 07:46] VITALS: BP 112/53; PULSE 108; TEMP 97.3
[2021-12-27 08:23] LABS: HEMATOCRIT 37.2 % (42.0-52.0); HEMOGLOBIN 11.7 g/dl (13.5-18.0); MEAN CELL VOLUME 76 fl (80.0-100.0); MEAN CORPUSCULAR HEMOGLOBIN 24 pg (27-31); MEAN CORPUSCULAR HGB CONC 32 g/dl (33.0-37.0); PLATELET COUNT 59 K/mm3 (130-400); RED BLOOD COUNT 4.88 M/mm3 (4.20-5.60); REDCELL DISTRIBUTION WIDTH-CV 22.7 % (11.5-14.5)
--- NOTE | 2021-12-27 08:30 | NUR ---
resting in bed with CPAP on, CPAP removed and am meds given, patient states he feels more short of breath this am is also talking about cooking a roast after given heparin and though the heparin had to do with cooking a roast, is oriented otherwise times 3, reoritned and explained the heparin is to prevent blood clots, O2 sat was90% and O2 on at 2L/NC, full assessment completed, see interventions for further info
[2021-12-27 08:37] LABS: ALBUMIN 1.9 gm/dL (3.5-5.0); BILIRUBIN,TOTAL 3.5 mg/dL (0.2-1.2); C-REACTIVE PROTEIN 4.27 mg/dL (0.00-0.50); CALCIUM 9.8 mg/dL (8.4-10.2); CREATININE, serum 3.6 mg/dL (0.72-1.25); POTASSIUM 5.2 mmol/L (3.5-4.5); TOTAL PROTEIN 5.3 gm/dL (6.2-8.1)
--- NOTE | 2021-12-27 08:40 | NUR ---
MATEO Fuller notified of confusion and O2 sat, and CO2 is 13,
[2021-12-27 08:55] LABS: PROTHROMBIN TIME 21.9 SECONDS (9.7-12.8)
--- NOTE | 2021-12-27 08:55 | NUR ---
repositioned up in bed with assistance of GROUNDS MAINTENANCE WORKER, states he is feeling better now and remains oriented,
--- NOTE | 2021-12-27 09:05 | NUR ---
CHASTITY Pozo in to see patient,
[2021-12-27 09:52] LABS: ANISOCYTOSIS 3+; BAND 1 % (0-10); EOSINOPHIL 1 % (0-4); HYPOCHROMIA 2+; LYMPHOCYTE 4 % (20.0-51.0); MICROCYTOSIS 1+; NEUTROPHILS 86 % (42.0-75.2)
[2021-12-27 09:53] LABS: PLATELET ESTIMATE DECREASED (NORMAL)
[2021-12-27 11:18] VITALS: BP 85/50; TEMP 97.1
--- NOTE | 2021-12-27 11:30 | NUR ---
BURN NURSE called nurse to room BP reading is 85/50 and has been rechecked, manual BP checked and it is 86/40, blood sugar checked and is 17, 25GM D50 given, patient is alert at this time, remains confused,
--- NOTE | 2021-12-27 11:40 | NUR ---
D5W at 50ml/hr started, patient is alert and trying to talk, then becomes unresponsieve to shaking and resp become agonal and no pulse is felt, 2 other nurses are in the room and CPR is started at this time, CAT call initiated and Alina GALINDO notified and is notifying Dr Robbins that code blue has been initiated, chest compressions being done and ambu bag delivering resp
--- NOTE | 2021-12-27 11:47 | NUR ---
see code blue sheet for further info
--- NOTE | 2021-12-27 12:38 | NUR ---
RT WAS CALLED TO PT ROOM AROUND 1140 WHERE BAGGING AND COMPRESSIONS HAD ALREADY BEGUN. BAGGED PT FOR 20 MINS, INTUBATION WAS DONE BY DR. ATY AND BAGGING CONTINUED. TOD CALLED AFTER ROUGHLY 30 MINS.
--- NOTE | 2021-12-27 13:31 | NUR ---
Sw helped notify family and provided emotional support. Zoran was notify and he proform prayer with the family. asked SW to video record prayer only.
--- NOTE | 2021-12-27 13:44 | NUR ---
ET tube was removed and patient has been cleaned up for transfer to home, and family have been at bedside with social work case manager and access control officer
--- NOTE | 2021-12-27 14:00 | NUR ---
PICC to [facility] removed
--- NOTE | 2021-12-27 16:33 | NUR ---
discharged to home
[2021-12-29 05:15] LABS: CERULOPLASMIN 65 mg/dL (20-60)
[2021-12-29 10:56] LABS: ANA SCREEN with REFLEX Negative (Negative)
[2021-12-30 11:36] LABS: ANTISMOOTH MUSCLE ANTIBODY Negative (Negative)
== END 2021-12-27 16:33 | disposition expired | DRG 602 ==
LOC: COL.ER 21:51 → SURG 23:39
PROVIDERS: Internal Medicine; Internal Medicine Gastroenterology; Physician Assistant; Student in an Organized Health Care Education/Training Program; ADMIT Internal Medicine
PROC: 02HV33Z Insertion of Infusion Device into Superior Vena Cava, Percutaneous Approach (ICD-10-PCS; 2021-12-22)
PROC: 0BH17EZ Insertion of Endotracheal Airway into Trachea, Via Natural or Artificial Opening (ICD-10-PCS; principal; 2021-12-27)
PROC: 5A12012 Performance of Cardiac Output, Single, Manual (ICD-10-PCS; 2021-12-27)
DX: L03.116 Cellulitis of left lower limb (principal); I50.31 Acute diastolic (congestive) heart failure; J96.00 Acute respiratory failure, unspecified whether with hypoxia or hypercapnia; N17.9 Acute kidney failure, unspecified; R65.10 Systemic inflammatory response syndrome (SIRS) of non-infectious origin without acute organ dysfunction; Z68.41 Body mass index [BMI] 40.0-44.9, adult; I13.0 Hypertensive heart and chronic kidney disease with heart failure and stage 1 through stage 4 chronic kidney disease, or unspecified chronic kidney disease; R18.8 Other ascites; E87.1 Hypo-osmolality and hyponatremia; E11.621 Type 2 diabetes mellitus with foot ulcer; L97.529 Non-pressure chronic ulcer of other part of left foot with unspecified severity; E11.22 Type 2 diabetes mellitus with diabetic chronic kidney disease; E11.649 Type 2 diabetes mellitus with hypoglycemia without coma; N18.9 Chronic kidney disease, unspecified; I87.2 Venous insufficiency (chronic) (peripheral); I83.892 Varicose veins of left lower extremity with other complications; I07.1 Rheumatic tricuspid insufficiency; I46.9 Cardiac arrest, cause unspecified; K74.60 Unspecified cirrhosis of liver; D50.9 Iron deficiency anemia, unspecified; B96.20 Unspecified Escherichia coli [E. coli] as the cause of diseases classified elsewhere; K14.0 Glossitis; I10 Essential (primary) hypertension; E66.9 Obesity, unspecified; R00.0 Tachycardia, unspecified; D72.829 Elevated white blood cell count, unspecified; E78.5 Hyperlipidemia, unspecified; E87.5 Hyperkalemia; Z79.82 Long term (current) use of aspirin; Z79.84 Long term (current) use of oral hypoglycemic drugs
CPT/HCPCS: 99223-AI; 99232-AI; 99233-AI; A9540; A9567; C1751; C9113; J0878; J1644; J1940; J2270; J2543; J3370; J3475; J7030; J7040; J7050; J7070; P9047